=== PATIENT | male | born 1970 | race Caucasian/White ===

== ENCOUNTER 2017-03-18 13:00 | Inpatient (IN) | payer BC ==
[2017-03-18] MEDS ORDERED: fentaNYL 100 MCG/2 ML INJ ONE ×3 (13:16→14:38)
[2017-03-18] MEDS ORDERED: PROPOFOL 200 MG/20 ML VIAL ONE (13:16)
[2017-03-18] MEDS ORDERED: ROCURONIUM 50 MG/5 ML VIAL ONE (13:18)
[2017-03-18] MEDS ORDERED: LIDOCAINE 2% 5 ML SDV ONE (13:18)
[2017-03-18] MEDS ORDERED: SUCCINYLCHOLINE CHLORIDE*ANESTHESIA ONLY*200 MG/10 ML SYR IVP ONE (13:18)
[2017-03-18] MEDS ORDERED: cefOXitin SODIUM 2 GM in D5W 100 ML IV ONE (13:30)
[2017-03-18] MEDS ORDERED: ONDANSETRON 4 MG/2 ML VIAL IVP PRN (13:37)
[2017-03-18] MEDS ORDERED: ceFAZolin 1 GM VIAL ONE ×2 (13:37)
--- NOTE | 2017-03-18 15:15 | POSTOPPROG ---
Post Op Note Date of Operation: 03/18/17 Surgeon: Jose Armando Escalante Anesthesiologist: Dr. Craig Anesthesia: GET(General Endotracheal) Pre-op Diagnosis: Appendicites Post-op Diagnosis: same, gangrenous Procedure: Laparoscopic appendectomy Inf/Abcess present in the surg proc area at time of surgery?: Yes Depth: Organ Space EBL: Minimal
[2017-03-18] MEDS: LR 1,000 ML IV SCH (15:56)
[2017-03-18] MEDS ORDERED: HYDROmorphONE/DILAUDID 1 MG/ML SYR IVP PRN (16:35)
[2017-03-18] MEDS ORDERED: NS 1,000 ML IV ONE (18:30)
[2017-03-18] MEDS ORDERED: cefOXitin SODIUM 1 GM in D5W 50 ML IV SCH (20:00)
[2017-03-18] MEDS: OXYCODONE/APAP 5/325 TAB PO PRN (21:59)
--- NOTE | 2017-03-19 01:24 | GOP ---
[f rep st] OPERATIVE REPORT DATE OF OPERATION: 03/18/2017 SURGEON: Vernon Escalante MD ANESTHESIA: General endotracheal. PREOPERATIVE DIAGNOSIS: Acute appendicitis, possible rupture. POSTOPERATIVE DIAGNOSIS: Acute appendicitis with gangrenous/necrotic appendix. PROCEDURE PERFORMED: Laparoscopic appendectomy. FINDINGS: The patient had a necrotic appendix that was completely walled off by the terminal ileum. No visible contamination was noted. ESTIMATED BLOOD LOSS: 20 cc. INDICATIONS: A 46-year-old male with a history of abdominal pain. CT scan demonstrated the possibility of perforated appendicitis. Risks and benefits of procedure were discussed with patient's family, their questions were answered, they wished to proceed. DESCRIPTION OF PROCEDURE: The patient was in the supine position. After the induction of adequate general endotracheal anesthesia, the patient was prepped and draped in the standard surgical fashion. Marcaine 0.5% was injected throughout the infraumbilical area and a 5-mm incision was made. The abdominal wall was elevated and the Veress needle was inserted. After noting proper pressures, the abdomen was insufflated with carbon dioxide. A 5-mm trocar was passed and the camera followed. There was no apparent damage with trocar placement. Two more ports were placed, one 5-mm port in the suprapubic midline and one 12-mm port in the left lower quadrant. These were both placed under direct vision after injecting 0.5% Marcaine for local anesthesia. The abdomen was inspected. The base of the appendix was then dissected. A window was opened in the mesentery using blunt dissection. An Endo VIOLA stapler with a vascular load was passed across the mesoappendix and fired. A bowel load was then passed across the base of the appendix and fired. The terminal ileum was seen to be clear of these firings. The appendix was placed into an Endo Catch bag and withdrawn through the 12-mm port. The abdomen was then inspected. Good hemostasis was noted. The fascia at the 12-mm port site was closed using 0 Vicryl in a [id number] fashion. The wounds were thoroughly irrigated and the skin at all sites was closed with 4-0 Monocryl in a subcuticular stitch. The wounds were sterilely dressed. The patient was extubated and taken to the PACU in stable condition. COMPLICATIONS: None. DRAINS: None. /[id number]/MODL MTDD
[2017-03-19] MEDS: cefOXitin SODIUM 1 GM in D5W 50 ML IV SCH ×4 (04:28→21:57)
[2017-03-19] MEDS: LR 1,000 ML IV SCH (04:28)
[2017-03-19 05:10] LABS: HEMATOCRIT 38.4 % (40.0-51.0); HEMOGLOBIN 13.3 g/dL (13.7-17.5); MEAN CELL HEMOGLOBIN 29.8 pg (27.9-34.1); MEAN CELL HEMOGLOBIN CONCENTR. 34.6 g/dL (32.4-36.7); MEAN CELL VOLUME 86.1 fL (81.5-99.8); RED BLOOD CELL COUNT 4.46 10^6/uL (4.40-6.38); RED CELL DISTRIBUTION WIDTH 12.1 % (11.5-15.2)
[2017-03-19 05:28] LABS: ALANINE AMINOTRANSFERASE 44 IU/L (21-72); ALBUMIN 3.1 g/dL (3.5-5.0); ALKALINE PHOSPHATASE 118 IU/L (38-126); ANION GAP 10 mEq/L (8-16); ASPARTATE AMINOTRANSFERASE 20 IU/L (17-59); BILIRUBIN,TOTAL 1.4 mg/dL (0.1-1.4); CALCIUM 8.7 mg/dL (8.5-10.4); CARBON DIOXIDE 23 mEq/l (22-31); CHLORIDE 103 mEq/L (97-110); CREATININE 0.8 mg/dL (0.7-1.3); GLOMERULAR FILTRATION RATE > 60; GLUCOSE 130 mg/dL (70-100); POTASSIUM 4.8 mEq/L (3.5-5.2); SODIUM 136 mEq/L (134-144); TOTAL PROTEIN 6.1 g/dL (6.3-8.2)
[2017-03-19] MEDS: OXYCODONE/APAP 5/325 TAB PO PRN ×3 (08:55→21:57)
[2017-03-19] MEDS ORDERED: MAGNESIUM HYDROXIDE 30 ML UDCUP PO PRN (12:41)
[2017-03-19] MEDS ORDERED: LACTULOSE 20 GM/30 ML UDCUP PO PRN (12:41)
[2017-03-19] MEDS ORDERED: BISACODYL 10 MG SUPP PR PRN (12:41)
[2017-03-19] MEDS ORDERED: POLYETHYLENE GLYCOL 3350 17 GM PKT PO PRN (12:41)
--- NOTE | 2017-03-19 12:43 | SOAPPROG ---
SOAP Progress Note Assessment/Plan: Assessment: s/p lap appy for gangrenous appendix, still with hypoxia, constipation. Ambulate, IS, bowel protocol. Cont IV abx. Plan: 03/19/17 12:42 Subjective: Patient feels better, still with some RLQ pain. No N/V. Objective: Vital Signs Temp Pulse Resp BP Pulse Ox 36.8 C 84 14 109/69 95 03/19/17 11:33 03/19/17 11:33 03/19/17 11:33 03/19/17 11:33 03/19/17 11:33 Laboratory Results 03/19/17 04:49 03/19/17 04:49 03/18/17 03/19/17 03/20/17 05:59 05:59 05:59 Intake Total 3723 Output Total 1055 650 Balance 2668 -650 Alert, NAD RRR Abd sl distended, mod TTP RLQ. No rebound/guarding. Inc C/D/I ICD10 Worksheet Patient Problems: Problems Problem Status Onset Gangrenous appendicitis Acute - ICD10 Problem Qualifiers (1) Gangrenous appendicitis
[2017-03-19] MEDS: SENNOSIDES/DOCUSATE SODIUM TAB PO SCH (21:57)
[2017-03-20] MEDS: cefOXitin SODIUM 1 GM in D5W 50 ML IV SCH ×2 (04:18→11:46)
[2017-03-20] MEDS: ACETAMINOPHEN 325 MG TAB PO PRN ×2 (05:14→12:31)
[2017-03-20 06:11] LABS: HEMATOCRIT 37.5 % (40.0-51.0); HEMOGLOBIN 12.6 g/dL (13.7-17.5); MEAN CELL HEMOGLOBIN 29.2 pg (27.9-34.1); MEAN CELL HEMOGLOBIN CONCENTR. 33.6 g/dL (32.4-36.7); RED BLOOD CELL COUNT 4.31 10^6/uL (4.40-6.38); RED CELL DISTRIBUTION WIDTH 12.2 % (11.5-15.2)
[2017-03-20 06:35] LABS: ALANINE AMINOTRANSFERASE 43 IU/L (21-72); ALKALINE PHOSPHATASE 106 IU/L (38-126); ANION GAP 8 mEq/L (8-16); ASPARTATE AMINOTRANSFERASE 22 IU/L (17-59); BILIRUBIN,TOTAL 0.7 mg/dL (0.1-1.4); CALCIUM 8.8 mg/dL (8.5-10.4); CARBON DIOXIDE 28 mEq/l (22-31); CHLORIDE 104 mEq/L (97-110); CREATININE 0.9 mg/dL (0.7-1.3); GLOMERULAR FILTRATION RATE > 60; GLUCOSE 101 mg/dL (70-100); POTASSIUM 4.7 mEq/L (3.5-5.2); SODIUM 140 mEq/L (134-144)
[2017-03-20 07:30] VITALS: BP 120/80; PULSE 69; RESP 14; TEMP 97.8; O2SAT 94
[2017-03-20] MEDS: SENNOSIDES/DOCUSATE SODIUM TAB PO SCH (08:09)
--- NOTE | 2017-03-20 10:35 | SOAPPROG ---
SOAP Progress Note Assessment/Plan: Assessment: s/p lap appy for gangrenous appendix, markedly improved. PO abx, plan d/c. Plan: 03/19/17 12:42 03/20/17 10:35 Subjective: Patient feels better, pain controlled, no N/V. Wally po, +BM Objective: Vital Signs Temp Pulse Resp BP Pulse Ox 36.6 C 69 14 120/80 94 03/20/17 07:28 03/20/17 07:28 03/20/17 07:28 03/20/17 07:28 03/20/17 07:28 Laboratory Results 03/20/17 05:18 03/20/17 05:18 03/19/17 03/20/17 03/21/17 05:59 05:59 05:59 Intake Total 3723 3470 Output Total 1055 1350 Balance 2668 2120 Alert, NAD RRR Abd soft, NTTP Inc C/D/I ICD10 Worksheet Patient Problems: Problems Problem Status Onset Gangrenous appendicitis Acute - ICD10 Problem Qualifiers (1) Gangrenous appendicitis
[2017-03-20] MEDS ORDERED: AMOXICILLIN/CLAVULANATE POT 875/125 MG TAB PO SCH (11:00)
--- NOTE | 2017-03-20 11:08 | GDS ---
[f rep st] DISCHARGE SUMMARY PRINCIPAL DIAGNOSIS: Gangrenous appendicitis with peritonitis. PRINCIPAL PROCEDURES: Laparoscopic appendectomy. OPERATING AND ADMITTING SURGEON: Dr. Escalante. INDICATIONS FOR ADMISSION: A 46-year-old male with a history of abdominal pain. Please see the his tory and physical for full details of the admission. HOSPITAL COURSE: On 03/18/2017, patient underwent a laparoscopic appendectomy. There were no compl ications during the operation. The patient was admitted to the MedSurg unit. There was continued o n IV antibiotics. The patient initially had low-grade temperatures and persistently elevated white count. The patient gradually improved, and by 03/20/2017, he is afebrile and his white count had re turned to normal. He is ambulating, voiding, and tolerating p.o. His pain was controlled on p.o. p ain medications. He was discharged home with oral antibiotics. Signs and symptoms of concern were discussed at length. The patient will follow up in 2 weeks. /[id number]/MODL
== END 2017-03-20 12:44 | disposition home or self-care (01) | DRG 340 ==
LOC: FSGY 13:00 → F3E 15:37 → OBSVTOIN 03-19 13:50
PROVIDERS: ADMIT Surgery; ATTEND Surgery
PROC: 0DTJ4ZZ Resection of Appendix, Percutaneous Endoscopic Approach (ICD-10-PCS; principal; 2017-03-18 13:15)
DX: K35.3 Acute appendicitis with localized peritonitis (principal); R09.02 Hypoxemia; K59.00 Constipation, unspecified
CPT/HCPCS: G0378; J0330; J0690; J0694; J0697; J1170; J2704; J3010

== ENCOUNTER → 2017-03-18 | Outpatient (CLI) | payer BC ==
[~2017-03-18] MED LIST: BUPIVACAINE 0.5% 30 ML SDV ONE; IOPAMIDOL (ISOVUE-300) 100 ML BTL IV ONE; MIDAZOLAM 2 MG/2 ML VIAL ONE
== END ==
LOC: FIMAGING 11:27
PROVIDERS: ATTEND Family Medicine
DX: K37 Unspecified appendicitis (principal)
CPT/HCPCS: J2250; Q9967